=== PATIENT | male | born 1975 | race Hispanic/Latino ===

== ENCOUNTER 2017-05-15 22:19 | Emergency (ER) | payer OTHER ==
[~2017-05-15] VITALS: Ht 172.7 cm; Wt 93.0 kg
[~2017-05-15 22:19] MED LIST: ALLEGRA ALLERGY60 MG PO; CITRATE OF MAG296 ML PO; COLACE100 MG PO; FLOMAX0.4 MG PO; MIRALAX255 GM PO; NAPROSYN500 MG PO; OXYCODONE H5 MG/5 ML PO; PERCOCET 5/31 TABLET PO; PRILOSEC40 MG PO; TORADOL10 MG PO
[2017-05-15 23:11] LABS: HEMATOCRIT 42.4 % (38.0-50.0); MCH 30.5 PG (29.0-34.0); MCHC 34.4 G/DL (30.0-36.0); MCV 88.7 FL (86-99); MEAN PLAT.VOLUME 9.5 uM^3 (9.0-12.4); PLATELET COUNT 300 K/uL (156-360); RBC DIS.WIDTH-CV 12.7 % (11.8-14.6); RBC DIS.WIDTH-SD 41.3 % (39-53); RED BLOOD COUNT 4.78 M/uL (4.00-5.50); WHITE BLOOD COUNT 7.2 K/uL (4.1-10.2)
[2017-05-15 23:20] LABS: CHLORIDE 107 mEq/L (99-109); POTASSIUM 3.7 mEq/L (3.7-5.4); SODIUM 139 mEq/L (136-147)
[2017-05-15 23:21] LABS: MAGNESIUM 2.2 mg/dL (1.3-2.7)
[2017-05-15 23:22] LABS: GLUCOSE 117 mg/dL (70-99)
[2017-05-15 23:23] LABS: ANION GAP 8 MEQ/L (2-14)
[2017-05-15 23:26] LABS: GFR ESTIMATE (CALCULATED) > 59 mL/min/
[2017-05-15 23:27] LABS: UREA NITROGEN (BUN) 17 mg/dL (9-23)
[2017-05-15 23:32] LABS: TROP-I INTERPRETATION NEGATIVE; TROPONIN-I < 0.01 ng/mL (0.0-0.30)
[2017-05-16 01:30] LABS: TROP-I INTERPRETATION NEGATIVE; TROPONIN-I < 0.01 ng/mL (0.0-0.30)
[2017-05-16 02:11] VITALS: BP 105/68
== END 2017-05-16 02:12 | disposition home or self-care (01) ==
LOC: EME 22:19
PROVIDERS: Physician Assistant
DX: R07.89 Other chest pain (principal); R00.2 Palpitations; Z72.0 Tobacco use
CPT/HCPCS: 71020; 80048; 83735; 84443; 84484; 85027; 93005; 99281; 99285